=== PATIENT | male | born 1975 | race Caucasian/White ===

== ENCOUNTER 2016-10-18 16:43 | Emergency (ER) | payer SELFPAY ==
[~2016-10-18 16:43] MED LIST: *DENIES; ACETAMINOPHEN PO; ASAB PO; COREG6 PO; DEXTROMETHORPHAN PO; INSNOV7030 SQ; LIPITOR40 PO; PHENYLEPHRINE PO; PRIN10 PO; PRIN20 PO; XARELTO20 MG PO; ZOCOR10 PO
== END 2016-10-18 18:02 | disposition home or self-care (01) ==
LOC: ER 16:43
DX: M79.604 Pain in right leg (principal); J06.9 Acute upper respiratory infection, unspecified; E11.9 Type 2 diabetes mellitus without complications; I48.91 Unspecified atrial fibrillation; I10 Essential (primary) hypertension; Z86.73 Personal history of transient ischemic attack (TIA), and cerebral infarction without residual deficits; F17.200 Nicotine dependence, unspecified, uncomplicated; Z88.0 Allergy status to penicillin; Z88.1 Allergy status to other antibiotic agents; Z88.8 Allergy status to other drugs, medicaments and biological substances
CPT/HCPCS: 73560-RT; 93005; 93971; 99284